=== PATIENT | male | born 1990 | race Caucasian/White ===

== ENCOUNTER 2016-12-31 15:02 | Emergency (ER) | payer BC ==
[~2016-12-31] VITALS: Ht 182.9 cm; Wt 110.9 kg
[2016-12-31 15:06] VITALS: Ht 182.9 cm; Wt 110.9 kg
[2016-12-31] MEDS ORDERED: CETI10TA84 PO (15:20)
[2016-12-31] MEDS ORDERED: VNTHFA/IN INH (15:20)
[2016-12-31] MEDS ORDERED: ALBUT/IPRATROP 3MG/0.5MG NEB 3 ML VIAL INH ONE (15:45)
--- NOTE | 2016-12-31 15:46 | EMERGENCY ROOM VISIT NOTE ---
History Report prepared by Gisela: Makenzie Hendrickson Under the Supervision of: Dr. Helena Miller D.O. First contact with patient: 15:08 Chief Complaint: RESPIRATORY PROBLEMS Stated Complaint: BRONCHITIS? WHEEZING, RESP PROBLEMS History of Present Illness The patient is a 25 year old male who presents to the Emergency Room with complaints of persistent respiratory problems that started 2 weeks ago. The patient states that he went to a walk-in clinic 2 weeks ago and they diagnosed him with bronchitis and a sinus infection. He was started on prednisone, a z- pack, and an inhaler. He was on 40 mg of prednisone for 5 days and he finished the z-pack around the same time also. The day after finishing the prednisone, the patient's symptoms came back. The patient is experiencing a headache, shortness of breath, chest tightness, and a dry cough. He denies fevers, chills , post-nasal drip, sore throat, diarrhea, and rash. The patient's girlfriend states that the patient had a hard time breathing last night. The patient has been using the inhaler that he received from the walk-in clinic, but it was empty this morning so he decided to come into the ED. The patient adds that he experienced similar symptoms when he was younger and had bad asthma. The patient 's asthma became seasonal as he got older. He has not been on an inhaler for 12 years. He states that he has been exposed to sick contacts at work over the past couple of weeks. He denies any recent travel. The patient is not a smoker, but he states that he does use chewing tobacco. The patient thinks that he received his flu shot this year. Source of History: patient Onset: 2 weeks ago Position: chest Quality: other (respiratory problems - chest tightness, shortness of breath , dry cough) Timing: other (persistent) Associated Symptoms: + headache, No chills, No diarrhea, No fevers, No rash , No sorethroat Note: no post-nasal drip Review of Systems See HPI for pertinent positives & negatives. A total of 10 systems reviewed and were otherwise negative. Past Medical & Surgical Medical Problems: (1) Seasonal asthma Family History No pertinent family history Social History Smoking Status: Never Smoker Smokeless Tobacco Use: Yes Marital Status: in relationship Current/Historical Medications Scheduled Albuterol (Ventolin Hfa), 2 PUFFS INH Q4 Albuterol Hfa (Ventolin Hfa), 2-4 PUFFS INH Q6H Cetirizine (Zyrtec), 10 MG PO DAILY Prednisone (Prednisone), 1 UNIT PO DAILY Allergies Coded Allergies: Sulfa Antibiotics (Verified Allergy, Unknown, swelling, 12/31/16) Physical Exam Vital Signs Date Time Temp Pulse Resp B/P Pulse Ox O2 Delivery O2 Flow Rate FiO2 12/31/16 18:05 36.8 101 18 158/81 98 12/31/16 18:04 101 18 158/81 98 Room Air 12/31/16 17:06 107 18 178/89 98 Room Air 12/31/16 15:56 97 20 97 Room Air 12/31/16 15:55 101 20 152/92 95 Room Air 12/31/16 15:36 97 Room Air 12/31/16 15:06 36.8 101 20 166/101 97 Room Air Physical Exam GENERAL: alert, well appearing, well nourished, no distress, non-toxic EYE EXAM: normal conjunctiva, PERRL and EOM's grossly intact OROPHARYNX: no exudate, no erythema, lips, buccal mucosa, and tongue normal and mucous membranes are moist NECK: supple, no nuchal rigidity, no adenopathy, non-tender LUNGS: Inspiratory and expiratory wheezing. Decreased breath sounds. Normal chest wall mechanics HEART: no murmurs, S1 normal and S2 normal ABDOMEN: abdomen soft, non-tender, normo-active bowel sounds, no masses, no rebound or guarding. BACK: Back is symmetrical on inspection and there is no deformity, no midline tenderness, no CVA tenderness. SKIN: no rashes and no bruising UPPER EXTREMITIES: upper extremities are grossly normal. LOWER EXTREMITIES: No pitting edema. NEURO EXAM: Normal sensorium, cranial nerves II-XII grossly intact, normal speech, no gross weakness of arms, no gross weakness of legs. Medical Decision & Procedures ER Provider Diagnostic Interpretation: Xray results per the radiologist and my interpretation. CHEST 2 VIEWS ROUTINE IMPRESSION: Negative chest. Electronically signed by: Rory Dick M.D. 12/31/2016 4:05 PM Dictated Date/Time: 12/31/2016 4:03 PM Laboratory Results Test 12/31/16 15:40 Influenza Type A (RT-PCR) Neg for Influ A (NEG) Influenza Type A Antigen Neg for Influ A (NEG) Influenza Type B Antigen Neg for Influ B (NEG) Influenza Type B (RT-PCR) Neg for Influ B (NEG) Laboratory results per my review. Medications Administered Medications (Trade) Dose Ordered Sig/Michael Route Start Time Stop Time Status Last Admin Dose Admin Albuterol/ Ipratropium (Duoneb) 12 ml ONE ONCE INH 12/31/16 15:45 12/31/16 15:46 DC 12/31/16 15:55 12 ML Prednisone (PredniSONE TAB) 40 mg NOW STAT PO 12/31/16 17:18 12/31/16 17:19 DC 12/31/16 17:22 40 MG Albuterol (Ventolin Hfa Inhaler) 2 puffs NOW ONCE INH 12/31/16 17:45 12/31/16 17:46 DC 12/31/16 17:58 2 PUFFS ED Course 1524: The patient was evaluated in room B10. A complete history and physical exam was performed. 1545: Ordered DuoNeb 12 ml INH 1712: Upon reevaluation, the patient is feeling better. On reexamination, he is moving air much better and he is no longer wheezing. I discussed the findings and the treatment plan with the patient. He verbalizes agreement and understanding. He was discharged home. 1718: Ordered Prednisone 40 mg PO 1745: Ordered Albuterol 2 puffs INH Medical Decision Doubt PE, no evidence of pneumonia/infiltrate/effusion, no risk factors for ACS/ CHF. Pt markedly improved after nebs. Discussed sx to watch/return for, f/u with PCP, use of inh/spacer, steroids. Pt verbalized understanding and was agreeable with plan. Impression Primary Impression: Asthma exacerbation Scribe Attestation The scribe's documentation has been prepared under my direction and personally reviewed by me in its entirety. I confirm that the note above accurately reflects all work, treatment, procedures, and medical decision making performed by me. Departure Information Dispostion Home / Self-Care Prescriptions Prednisone (Prednisone) 10 Mg Von 1 UNIT PO DAILY, #1 PKT Prov: Helena Miller, 12/31/16 Albuterol (Ventolin Hfa) 60 Puffs/5400 Mcg Aers 2 PUFFS INH Q4 for SOB/Wheezing, #1 INHALER Prov: Helena Miller, DO 12/31/16 Forms HOME CARE DOCUMENTATION FORM, IMPORTANT VISIT INFORMATION, WORK / SCHOOL INSTRUCTIONS Patient Instructions My [facility] [facility] Additional Instructions Please avoid any potential triggers for your asthma. You may use your inhaler up to every 4 hours. If you feel you need to use the inhaler more frequently than that, feel it isn't helping, develop fevers, chest pain, worsening cough, swelling, or you have any other new or concerning symptoms, please return to the emergency room. Please take the steroids as prescribed. Please follow-up with your family doctor in the next 2-3 days.
[2016-12-31 15:56] VITALS: PULSE 97; O2SAT 97
--- NOTE | 2016-12-31 16:07 | DIAGNOSTIC IMAGING REPORT ---
CHEST 2 VIEWS ROUTINE CLINICAL HISTORY: cough, sob dyspnea COMPARISON STUDY: No previous studies for comparison. FINDINGS: The bones soft tissues and hemidiaphragms are normal. The cardiomediastinal silhouette is normal. The lungs are clear. The pulmonary vasculature is normal. IMPRESSION: Negative chest. Electronically signed by: Rory Dick M.D. 12/31/2016 4:05 PM Dictated Date/Time: 12/31/2016 4:03 PM
[2016-12-31] MEDS ORDERED: PRED10PA4 PO (17:27)
[2016-12-31] MEDS ORDERED: PRVHFAIN INH (17:27)
[2016-12-31] MEDS ORDERED: ALBUTEROL HFA 8 GM INHALER INH ONE (17:45)
[2016-12-31 18:04] LABS: INFLUENZA A PCR Neg for Influ A (NEG); INFLUENZA B PCR Neg for Influ B (NEG)
[2016-12-31 18:05] VITALS: BP 158/81; PULSE 101; TEMP 36.8; O2SAT 98
== END 2016-12-31 18:06 | disposition home or self-care (01) ==
LOC: C.EDB 15:03 → EDBD 15:03 → C.EDB 18:06
DX: J44.1 Chronic obstructive pulmonary disease with (acute) exacerbation (principal); F17.220 Nicotine dependence, chewing tobacco, uncomplicated; Z88.2 Allergy status to sulfonamides